=== PATIENT | female | born 2000 ===

== ENCOUNTER → 2025-03-13 | Day surgery (SDC) | payer OTHER ==
[~2025-03-13] VITALS: Ht 152.4 cm; Wt 74.8 kg
[~2025-03-13] MED LIST: ACETAMINOPHEN 100 ML IV ONE; Dexamethasone Sodium Phospha 4 MG/ML VIAL IV ONE; Ketamine Hydrochloride 500 MG/10 ML VIAL IV ONE; Lactated Ringer's Solution 1,000 ML IV ONE; Lidocaine Hydrochloride 2% 5 ML SDV IV ONE; Ondansetron Hydrochloride 4 MG/2 ML VIAL IV ONE; PROPOFOL 200 MG/20 ML VIAL IV ONE; ROCURONIUM BROMIDE 50 MG/5 ML SYRINGE IV ONE; SEVOFLURANE 250 ML BOT INH ONE; SUGAMMADEX SODIUM 200 MG/2 ML VIAL IV ONE
[2025-03-13 10:00] VITALS: BP 123/83
[2025-03-13 10:35] LABS: BASO # 0.0 10*3/uL (0.0-0.1); BASO % 0.3 % (0.0-1.0); EOS # 0.3 10*3/uL (0.0-0.4); EOS % 3.2 % (1.0-4.0); MEAN CELL VOLUME 86.7 fl (81.0-99.0); MEAN CORPUSCULAR HGB 29.7 pg (27.0-31.0); MEAN PLATELET VOLUME 10.4 fl (9.6-12.3); MONO # 0.7 10*3/uL (0.1-1.0); MONO % 7.3 % (3.0-9.0); NEUT # 6.0 10*3/uL (2.3-7.9); NEUT % 62.8 % (47.0-73.0); NUCLEATED RED BLOOD CELL 0.0 % (0.0-0.0); NUCLEATED RED BLOOD CELL 0.0 10*3/uL (0.0-0.0); PLATELET COUNT AUTOMATED 370 10*3/uL (130-400); RED CELL DISTRI WIDTH 11.3 % (0-14.5)
[2025-03-13 13:30] VITALS: BP 103/47
[2025-03-13 13:45] VITALS: BP 102/58
[2025-03-13 14:00] VITALS: BP 103/61
[2025-03-13 14:15] VITALS: BP 98/55
[2025-03-13 14:30] VITALS: BP 113/76
== END | disposition home or self-care (01) ==
LOC: SDC 02-17 11:00
PROVIDERS: ATTEND Obstetrics & Gynecology
DX: N80.9 Endometriosis, unspecified (principal); R10.20 Pelvic and perineal pain unspecified side; N83.201 Unspecified ovarian cyst, right side; F41.9 Anxiety disorder, unspecified; F32.A Depression, unspecified; G40.909 Epilepsy, unspecified, not intractable, without status epilepticus; J18.9 Pneumonia, unspecified organism; G43.909 Migraine, unspecified, not intractable, without status migrainosus; F17.200 Nicotine dependence, unspecified, uncomplicated; Z91.013 Allergy to seafood; Z98.890 Other specified postprocedural states